=== PATIENT | female | born 1945 ===

== ENCOUNTER 2020-12-14 19:48 | Emergency (ER) | payer OTHER ==
[~2020-12-14] VITALS: Ht 157.5 cm; Wt 44.0 kg
[~2020-12-14 19:48] MED LIST: ASACOL HD800 MG; COZAAR100 MG; INDERAL LA80 MG
== END 2020-12-14 22:28 | disposition designated cancer center or children's hospital (05) ==
LOC: ER 19:48
DX: S06.340A Traumatic hemorrhage of right cerebrum without loss of consciousness, initial encounter (principal); R42 Dizziness and giddiness; R51.9 Headache, unspecified; X58.XXXA Exposure to other specified factors, initial encounter; Y93.89 Activity, other specified; Y92.89 Other specified places as the place of occurrence of the external cause; Y99.8 Other external cause status

== ENCOUNTER 2023-03-13 00:37 | Emergency (ER) | payer OTHER ==
[~2023-03-13] VITALS: Ht 160 cm; Wt 49.9 kg
[2023-03-13 09:44] LABS: URINE APPEARANCE Clear; URINE BILIRRUBIN Negative (NEGATIVE); URINE BLOOD Small; URINE COLOR Yellow; URINE GLUCOSE Negative (NEGATIVE); URINE LEUKOCYTE Trace; URINE NITRATE Negative; URINE PROTEIN Trace (NEGATIVE); URINE UROBILINOGEN 0.2 E.U./dl
[2023-03-13 09:45] LABS: HEMATOCRIT 36.1 % (36.0-45.00); HEMOGLOBIN 11.6 g/dL (12.0-15.00); MEAN CELL VOLUME 83.3 fL (80.00-100.00); MEAN CORPUSCULAR HEMOGLOBIN 26.7 pg (27.00-32.0); PLATELET COUNT 143 K/uL (150-450); RED BLOOD COUNT 4.33 M/uL (4.00-6.00); RED CELL DISTRIBUTION WIDTH 16.2 % (11.5-14.5)
[2023-03-13 09:48] LABS: URINE EPITHELIAL CELLS 5.4 uL (0.0-38.8); URINE RBC 8.9 uL (0.0-20.8); URINE WBC 22.5 uL (0.0-23.2)
[2023-03-13 10:29] LABS: CALCIUM 10.1 mg/dL (8.5-10.1); CREATININE SERUM 1.02 mg/dL (0.55-1.02); GFR 52.55; POTASSIUM 4.13 mEq/L (3.5-5.1)
== END 2023-03-13 12:20 ==
LOC: ER 00:37
PROVIDERS: General Practice
DX: S09.8XXA Other specified injuries of head, initial encounter (principal); W18.39XA Other fall on same level, initial encounter; Y93.89 Activity, other specified; Y92.018 Other place in single-family (private) house as the place of occurrence of the external cause; I10 Essential (primary) hypertension; K51.80 Other ulcerative colitis without complications; Z91.040 Latex allergy status; I49.8 Other specified cardiac arrhythmias; E78.00 Pure hypercholesterolemia, unspecified; Z98.890 Other specified postprocedural states

== ENCOUNTER → 2023-04-01 | Emergency (ER) | payer OTHER ==
[~2023-04-01] VITALS: Ht 160 cm; Wt 49.9 kg
[~2023-04-01] MED LIST changes: +AMLODIPINE BESYL5 MG PO; +RAYOS5 MG PO; +SIMVASTATIN10 MG PO; +SULFASALAZINE500 M1 PO; +SYNTHROID100 MCG PO; +TOPROL XL100 M1 PO
[2023-04-01 12:03] LABS: MEAN CELL VOLUME 82.4 fL (80.00-100.00); MEAN CORPUSCULAR HGB CONC 32.3 g/dl (32.0-36.0); PLATELET COUNT 357 K/uL (150-450); RED BLOOD COUNT 2.85 M/uL (4.00-6.00); RED CELL DISTRIBUTION WIDTH 15.8 % (11.5-14.5)
[2023-04-01 12:06] LABS: MEAN CORPUSCULAR HEMOGLOBIN 26.6 pg (27.00-32.0)
[2023-04-01 12:07] LABS: HEMATOCRIT 23.4 % (36.0-45.00); HEMOGLOBIN 7.6 g/dL (12.0-15.00)
[2023-04-01 12:29] LABS: ALBUMIN 3.1 gm/dL (3.4-5.0); BILIRUBIN TOTAL 0.37 mg/dL (0.3-1.2); CALCIUM 9.3 mg/dL (8.5-10.1); CREATININE SERUM 0.85 mg/dL (0.55-1.02); GFR 64.85; GLOBULINA 5.6 G/DL (2.4-3.5); POTASSIUM 3.3 mEq/L (3.5-5.1); TOTAL PROTEIN 8.7 gm/dL (6.4-8.2)
== END | disposition home or self-care (01) ==
LOC: ER 10:54
PROVIDERS: Emergency Medicine
DX: D64.9 Anemia, unspecified (principal); Z91.040 Latex allergy status